=== PATIENT | female | born 1985 | race Caucasian/White ===

== ENCOUNTER 2017-11-07 15:34 | Emergency (ER) | payer OTHER ==
[2017-11-07] MEDS ORDERED: DIPH,PERTUS(ACELL)TETVAC-LF 0.5 ML VIAL IM ONE (16:19)
--- NOTE | 2017-11-07 16:33 | XR ---
EXAMINATION TYPE: XR finger LT DATE OF EXAM: 11/07/2017 COMPARISON: NONE HISTORY: Left fifth finger pain after laceration injury. TECHNIQUE: 3 views of left fifth finger are acquired. FINDINGS: No acute fracture or dislocation is seen. Joint spaces are preserved. Overlying soft tissue is unremarkable without radiodense foreign body present. IMPRESSION: No acute fracture or dislocation in the fifth finger of left hand.
--- NOTE | 2017-11-07 17:22 | ED ---
Fall HPI - General Chief Complaint: Fall Stated Complaint: finger lac Time Seen by Provider: 11/07/17 16:06 Source: patient, RN notes reviewed, old records reviewed Mode of arrival: ambulatory - History of Present Illness Initial Comments: It is a 32-year-old female chief complaint of left fifth finger laceration of last night. She reports that she fell while caring boxes and slipped. Reports that the think she was caring fell and she landed on her left hand. Just complains of some minor left elbow pain, reports full range of motion. She states her tetanus shot is not up-to-date.Patient is concerned because she put a Band-Aid over the laceration last night. She continued to bleed throughout the day. - Related Data Home Medications Medication Instructions Recorded Confirmed Etonogestrel/Ethinyl Estradiol 1 each VG DAILY 04/11/14 04/11/14 [Nuvaring Vaginal Ring] Previous Rx's Medication Instructions Recorded Cephalexin [Keflex] 500 mg PO Q8HR #21 cap 11/07/17 Allergies Allergy/AdvReac Type Severity Reaction Status Date / Time codeine AdvReac Nausea & Verified 11/07/17 15:41 Vomiting Review of Systems ROS Statement: Those systems with pertinent positive or pertinent negative responses have been documented in the HPI. ROS Other: All systems not noted in ROS Statement are negative. Past Medical History Past Medical History: No Reported History History of Any Multi-Drug Resistant Organisms: None Reported Past Surgical History: Orthopedic Surgery, Tonsillectomy Additional Past Surgical History / Comment(s): right hip surgery, GASTRIC BYPASS Past Psychological History: No Psychological Hx Reported Smoking Status: Current some day smoker Past Alcohol Use History: Occasional Past Drug Use History: None Reported General Exam - General Exam Comments Initial Comments: 32-year-old female. No acute distress. Limitations: no limitations General appearance: alert, in no apparent distress Head exam: Present: atraumatic, normocephalic, normal inspection Eye exam: Present: normal appearance, PERRL, EOMI. Absent: scleral icterus, conjunctival injection, periorbital swelling ENT exam: Present: normal exam, mucous membranes moist Neck exam: Present: normal inspection. Absent: tenderness, meningismus, lymphadenopathy Respiratory exam: Present: normal lung sounds bilaterally. Absent: respiratory distress, wheezes, rales, rhonchi, stridor Cardiovascular Exam: Present: regular rate, normal rhythm, normal heart sounds. Absent: systolic murmur, diastolic murmur, rubs, gallop, clicks Left Hand Wrist exam: Present: laceration (flap laceration measuirng 3 cm over left lateral 5th digit). Absent: normal inspection Neuro motor exam: Present: wrist extension intact, thumb opposition intact, thumb IP flexion intact, thumb adduction intact, fingers 2-5 abduction intact Neurosensory exam: Present: radial nerve intact, ulnar nerve intact, median nerve intact Vascular: Present: normal capillary refill Back exam: Present: normal inspection Neurological exam: Present: alert, oriented X3, CN II-XII intact Psychiatric exam: Present: normal affect, normal mood Skin exam: Present: warm, dry, intact, normal color. Absent: rash Course Vital Signs 11/07/17 11/07/17 15:37 17:28 Temperature 98.8 F 97.8 F Pulse Rate 105 H 78 Respiratory 18 16 Rate Blood Pressure 190/101 150/70 O2 Sat by Pulse 100 98 Oximetry Procedures - Laceration Laceration #1 Site: upper extremity, hand (left fifth finger) Size (cm): 3 Description: flap Anesthetic Used: lidocaine 1% Anesthesia Technique: nerve block Amount (mls): 3 Pre-repair: wound explored, irrigated extensively Type of Sutures: nylon Size of Sutures: 6-0 Number of Sutures: 6 Technique: simple, interrupted Patient Tolerated Procedure: well, no complications Medical Decision Making - Medical Decision Making This patient is a 32-year-old female with a laceration over her left fifth digits that occurred yesterday when she fell. She's concerned because it's deeper than she realize and continue to bleed throughout the night. Patient has a 3 cm laceration over the finger. It is a flap laceration. Actually was obtained a negative for any acute process. Patient's wound was irrigated and clean with Betadine. Wound was wel approximated was close with suture. Discussed bring the patient on anabiotic's due to delay closure and concern for possible infection. Given an updated tetanus shot. All questions were answered in return for me just were discussed. Patient was discharged with her finger wrapped in tube gauze. - Radiology Data Radiology results: report reviewed finger xray is nefative for any acute process Disposition Clinical Impression: Finger laceration Disposition: HOME SELF-CARE Condition: Good Instructions: Finger Laceration (ED) Additional Instructions: Please return to the emergency room in 8-10 days to have sutures removed. Please leave wound covered for the first 24-48 hours and then leave open to air after that time. Please use clean soap and water to clean the suture area to prevent scabbing over the top of your sutures. Please watch for any signs of infection which may include but not limited to increased pain, swelling, redness , fever or chills. Please return to the emergency room if any signs of infection do occur. Please return to the emergency room for any other concerns or complications. Prescriptions: Cephalexin [Keflex] 500 mg PO Q8HR #21 cap Referrals: None,Stated [Primary Care Provider] - 1-2 days Time of Disposition: 17:21
[2017-11-07 17:29] VITALS: BP 150/70; PULSE 78; RESP 16; TEMP 97.8
== END 2017-11-07 17:28 | disposition home or self-care (01) ==
LOC: EC 15:34
DX: S61.217A Laceration without foreign body of left little finger without damage to nail, initial encounter (principal); M25.511 Pain in right shoulder; F17.200 Nicotine dependence, unspecified, uncomplicated; Z23 Encounter for immunization; Z79.3 Long term (current) use of hormonal contraceptives; Z88.5 Allergy status to narcotic agent; W01.0XXA Fall on same level from slipping, tripping and stumbling without subsequent striking against object, initial encounter
CPT/HCPCS: 12002; 90471; 90715; 99283

== ENCOUNTER 2018-04-13 03:35 | Emergency (ER) | payer OTHER ==
[2018-04-13 03:45] VITALS: TEMP 98.3
[2018-04-13] MEDS ORDERED: SODIUM CHLORIDE 0.9% 1,000 ML IV ONE (03:56)
[2018-04-13] MEDS ORDERED: chlordiazePOXIDE 25 MG CAP PO STA (04:10)
--- NOTE | 2018-04-13 04:14 | ED ---
General Adult HPI - General Chief complaint: Recheck/Abnormal Lab/Rx Stated complaint: poss dehydration Time Seen by Provider: 04/13/18 03:56 Source: patient Mode of arrival: ambulatory Limitations: no limitations - History of Present Illness Initial comments: This patient is a 33-year-old woman who presents to be evaluated for feeling like she is anxious and dehydrated. The patient states she had gone to a barbecue today and it was very hot there, in addition the puncture site was served had tequila in it and she states that always gives her a "reaction." The patient states that she attended the [employer] from 5 PM onward and started feeling different around 10 PM. She complains of bilateral leg cramping. Also feeling anxious and like her heart is racing. -: hour(s) Location: left, right, lower extremity Quality: other (Cramping) Consistency: intermittent Improves with: none Worsens with: none Associated Symptoms: other (Anxiety) Treatments Prior to Arrival: none - Related Data Home Medications Medication Instructions Recorded Confirmed Etonogestrel/Ethinyl Estradiol 1 each VG DAILY 04/11/14 04/11/14 [Nuvaring Vaginal Ring] Previous Rx's Medication Instructions Recorded Cephalexin [Keflex] 500 mg PO Q8HR #21 cap 11/07/17 Allergies Allergy/AdvReac Type Severity Reaction Status Date / Time codeine AdvReac Nausea & Verified 04/13/18 03:45 Vomiting Review of Systems ROS Statement: Those systems with pertinent positive or pertinent negative responses have been documented in the HPI. ROS Other: All systems not noted in ROS Statement are negative. Constitutional: Denies: fever, chills, weakness Respiratory: Denies: cough, dyspnea Cardiovascular: Reports: palpitations. Denies: chest pain, orthopnea, edema, syncope Gastrointestinal: Denies: abdominal pain, nausea, vomiting Genitourinary: Denies: dysuria, hematuria Musculoskeletal: Reports: as per HPI, myalgia. Denies: back pain Skin: Denies: rash Neurological: Denies: headache, weakness, numbness Psychiatric: Reports: anxiety Past Medical History Past Medical History: No Reported History History of Any Multi-Drug Resistant Organisms: None Reported Past Surgical History: Orthopedic Surgery, Tonsillectomy Additional Past Surgical History / Comment(s): right hip surgery, GASTRIC BYPASS Past Psychological History: No Psychological Hx Reported Smoking Status: Current some day smoker Past Alcohol Use History: Occasional Past Drug Use History: None Reported General Exam Limitations: no limitations General appearance: alert, in no apparent distress, obese Head exam: Present: atraumatic, normocephalic Eye exam: Present: normal appearance. Absent: scleral icterus, conjunctival injection ENT exam: Present: normal oropharynx Respiratory exam: Present: normal lung sounds bilaterally. Absent: respiratory distress, wheezes, rales, rhonchi, stridor Cardiovascular Exam: Present: normal rhythm, tachycardia, normal heart sounds. Absent: systolic murmur, diastolic murmur, rubs, gallop GI/Abdominal exam: Present: soft. Absent: distended, tenderness, guarding, rebound, mass Extremities exam: Present: normal inspection, normal capillary refill. Absent: pedal edema, calf tenderness Back exam: Present: normal inspection. Absent: CVA tenderness (R), CVA tenderness (L) Neurological exam: Present: alert Psychiatric exam: Present: anxious Skin exam: Present: warm, dry, intact, normal color. Absent: rash Course Vital Signs 04/13/18 04/13/18 04/13/18 03:42 05:47 06:00 Temperature 98.3 F Pulse Rate 133 H 103 H 97 Respiratory 20 18 18 Rate Blood Pressure 201/101 209/87 161/81 O2 Sat by Pulse 100 98 99 Oximetry 04/13/18 07:15 Temperature Pulse Rate 91 Respiratory 18 Rate Blood Pressure 200/103 O2 Sat by Pulse 98 Oximetry EKG Findings - EKG Results: EKG: interpreted by ERMD, sinus rhythm, normal axis, normal QRS, normal ST/T EKG shows: tachycardia (Rate approximately 116 bpm) Medical Decision Making - Lab Data Result diagrams: 04/13/18 04:16 04/13/18 04:16 Lab Results 04/13/18 04/13/18 04/13/18 Range/Units 04:16 04:16 04:16 WBC 16.3 H (3.8-10.6) k/uL RBC 4.79 (3.80-5.40) m/uL Hgb 11.9 (11.4-16.0) gm/dL Hct 37.0 (34.0-46.0) % MCV 77.2 L (80.0-100.0) fL MCH 24.8 L (25.0-35.0) pg MCHC 32.1 (31.0-37.0) g/dL RDW 17.1 H (11.5-15.5) % Plt Count 444 (150-450) k/uL Neutrophils % 82 % Lymphocytes % 12 % Monocytes % 3 % Eosinophils % 2 % Basophils % 0 % Neutrophils # 13.3 H (1.3-7.7) k/uL Lymphocytes # 2.0 (1.0-4.8) k/uL Monocytes # 0.5 (0-1.0) k/uL Eosinophils # 0.3 (0-0.7) k/uL Basophils # 0.0 (0-0.2) k/uL Anisocytosis Slight Microcytosis Slight D-Dimer (<0.60) mg/L FEU Sodium 131 L (137-145) mmol/L Potassium 4.3 (3.5-5.1) mmol/L Chloride 98 (98-107) mmol/L Carbon Dioxide 15 L (22-30) mmol/L Anion Gap 18 mmol/L BUN 4 L (7-17) mg/dL Creatinine 0.50 L (0.52-1.04) mg/dL Est GFR (CKD-EPI)AfAm >90 (>60 ml/min/1.73 sqM) Est GFR (CKD-EPI)NonAf >90 (>60 ml/min/1.73 sqM) Glucose 100 H (74-99) mg/dL Lactic Ac Sepsis Rflx Plasma Lactic Acid Fercho 2.7 H* (0.7-2.0) mmol/L Calcium 9.2 (8.4-10.2) mg/dL Urine Color Urine Appearance (Clear) Urine pH (5.0-8.0) Ur Specific Clayton (1.001-1.035) Urine Protein (Negative) Urine Glucose (UA) (Negative) Urine Ketones (Negative) Urine Blood (Negative) Urine Nitrite (Negative) Urine Bilirubin (Negative) Urine Urobilinogen (<2.0) mg/dL Ur Leukocyte Esterase (Negative) Serum Alcohol mg/dL 04/13/18 04/13/18 04/13/18 Range/Units 04:16 04:16 04:16 WBC (3.8-10.6) k/uL RBC (3.80-5.40) m/uL Hgb (11.4-16.0) gm/dL Hct (34.0-46.0) % MCV (80.0-100.0) fL MCH (25.0-35.0) pg MCHC (31.0-37.0) g/dL RDW (11.5-15.5) % Plt Count (150-450) k/uL Neutrophils % % Lymphocytes % % Monocytes % % Eosinophils % % Basophils % % Neutrophils # (1.3-7.7) k/uL Lymphocytes # (1.0-4.8) k/uL Monocytes # (0-1.0) k/uL Eosinophils # (0-0.7) k/uL Basophils # (0-0.2) k/uL Anisocytosis Microcytosis D-Dimer 0.75 H (<0.60) mg/L FEU Sodium (137-145) mmol/L Potassium (3.5-5.1) mmol/L Chloride (98-107) mmol/L Carbon Dioxide (22-30) mmol/L Anion Gap mmol/L BUN (7-17) mg/dL Creatinine (0.52-1.04) mg/dL Est GFR (CKD-EPI)AfAm (>60 ml/min/1.73 sqM) Est GFR (CKD-EPI)NonAf (>60 ml/min/1.73 sqM) Glucose (74-99) mg/dL Lactic Ac Sepsis Rflx Plasma Lactic Acid Fercho (0.7-2.0) mmol/L Calcium (8.4-10.2) mg/dL Urine Color Colorless Urine Appearance Clear (Clear) Urine pH 5.5 (5.0-8.0) Ur Specific [place] 1.001 (1.001-1.035) Urine Protein Negative (Negative) Urine Glucose (UA) Negative (Negative) Urine Ketones Trace H (Negative) Urine Blood Negative (Negative) Urine Nitrite Negative (Negative) Urine Bilirubin Negative (Negative) Urine Urobilinogen <2.0 (<2.0) mg/dL Ur Leukocyte Esterase Negative (Negative) Serum Alcohol 64 mg/dL 04/13/18 Range/Units 04:41 WBC (3.8-10.6) k/uL RBC (3.80-5.40) m/uL Hgb (11.4-16.0) gm/dL Hct (34.0-46.0) % MCV (80.0-100.0) fL MCH (25.0-35.0) pg MCHC (31.0-37.0) g/dL RDW (11.5-15.5) % Plt Count (150-450) k/uL Neutrophils % % Lymphocytes % % Monocytes % % Eosinophils % % Basophils % % Neutrophils # (1.3-7.7) k/uL Lymphocytes # (1.0-4.8) k/uL Monocytes # (0-1.0) k/uL Eosinophils # (0-0.7) k/uL Basophils # (0-0.2) k/uL Anisocytosis Microcytosis D-Dimer (<0.60) mg/L FEU Sodium (137-145) mmol/L Potassium (3.5-5.1) mmol/L Chloride (98-107) mmol/L Carbon Dioxide (22-30) mmol/L Anion Gap mmol/L BUN (7-17) mg/dL Creatinine (0.52-1.04) mg/dL Est GFR (CKD-EPI)AfAm (>60 ml/min/1.73 sqM) Est GFR (CKD-EPI)NonAf (>60 ml/min/1.73 sqM) Glucose (74-99) mg/dL Lactic Ac Sepsis Rflx Y Plasma Lactic Acid Fercho (0.7-2.0) mmol/L Calcium (8.4-10.2) mg/dL Urine Color Urine Appearance (Clear) Urine pH (5.0-8.0) Ur Specific [place] (1.001-1.035) Urine Protein (Negative) Urine Glucose (UA) (Negative) Urine Ketones (Negative) Urine Blood (Negative) Urine Nitrite (Negative) Urine Bilirubin (Negative) Urine Urobilinogen (<2.0) mg/dL Ur Leukocyte Esterase (Negative) Serum Alcohol mg/dL Disposition Clinical Impression: Dehydration, Anxiety Disposition: HOME SELF-CARE Condition: Good Instructions: Dehydration (ED) Is patient prescribed a controlled substance at d/c from ED?: No Referrals: None,Stated [Primary Care Provider] - 1-2 days
[2018-04-13 04:21] LABS: Appearance,Urine Clear (Clear); Bilirubin,Urine Negative (Negative); Blood,Urine Negative (Negative); Color,Urine Colorless; Glucose,Urine (UA) Negative (Negative); Ketones,Urine Trace (Negative); Leukocyte Esterase,Urine Negative (Negative); Nitrite,Urine Negative (Negative); PH, Urine 5.5 (5.0-8.0); Protein,Urine Negative (Negative); Specific Gravity,Urine 1.001 (1.001-1.035); Urobilinogen,Urine <2.0 mg/dL (<2.0)
[2018-04-13 04:27] LABS: Anisocytosis Slight; Basophils % (A) 0 %; Eosinophils # (A) 0.3 k/uL (0-0.7); Eosinophils % (A) 2 %; HGB 11.9 gm/dL (11.4-16.0); Lymphocytes % (A) 12 %; MCH 24.8 pg (25.0-35.0); MCHC 32.1 g/dL (31.0-37.0); MCV 77.2 fL (80.0-100.0); Mean Platelet Volume 7.1; Microcytosis Slight; Monocytes # (A) 0.5 k/uL (0-1.0); Monocytes % (A) 3 %; Neutrophils # (A) 13.3 k/uL (1.3-7.7); Neutrophils % (A) 82 %; Platelet Count 444 k/uL (150-450); RBC 4.79 m/uL (3.80-5.40); RDW 17.1 % (11.5-15.5); WBC 16.3 k/uL (3.8-10.6)
[2018-04-13 04:33] LABS: Anion Gap 18 mmol/L; Calcium 9.2 mg/dL (8.4-10.2); Carbon Dioxide 15 mmol/L (22-30); Chloride 98 mmol/L (98-107); Glucose 100 mg/dL (74-99); Sodium 131 mmol/L (137-145)
[2018-04-13 04:39] LABS: Blood Urea Nitrogen 4 mg/dL (7-17); Potassium 4.3 mmol/L (3.5-5.1)
[2018-04-13] MEDS ORDERED: SODIUM CHLORIDE 0.9% 2,000 ML IV ONE (04:45)
[2018-04-13] MEDS ORDERED: LABETALOL 5 MG/ML VIAL MDV IVP STA (05:50)
--- NOTE | 2018-04-13 07:14 | CT ---
EXAMINATION TYPE: CT chest angio for PE DATE OF EXAM: 04/13/2018 COMPARISON: NONE HISTORY: Patient complains of chest pain. CT DLP: 489 mGycm Automated exposure control for dose reduction was used. CONTRAST: CT Chest for pulmonary embolism performed with with IV Contrast, patient injected with 100 mL of Isov ue 370. FINDINGS: There are 3-D post processed images. The lungs are clear of infiltrate. There is no evidence of a pulmonary mass. There is no pleural effu norberto. The heart size is normal. There is no pericardial effusion. There is normal contrast opacification of the pulmonary arteries. There are no filling defects. There is no mediastinal adenopathy. There are no hilar masses. Thoracic aorta appears normal. There is minor spurring in the thoracic spine. I see no bony destructive process. Heart appears slightly enlarged. IMPRESSION: Mild cardiomegaly. No evidence of pulmonary embolism.
[2018-04-13] MEDS ORDERED: LORazepam 2 MG/ML INJ IV STA (07:21)
[2018-04-13 08:28] VITALS: BP 152/74; PULSE 88; RESP 16
== END 2018-04-13 08:05 | disposition home or self-care (01) ==
LOC: EC 03:35
DX: E86.0 Dehydration (principal); F41.9 Anxiety disorder, unspecified; R25.2 Cramp and spasm; R00.0 Tachycardia, unspecified; F17.200 Nicotine dependence, unspecified, uncomplicated; Z97.5 Presence of (intrauterine) contraceptive device; Z88.5 Allergy status to narcotic agent
CPT/HCPCS: 36415; 93005; 85379; 80048; 83605; 85025; 81003; 80320; 71275; 99284; 96374; 96375; 96360; 96361 ×4; J2060; Q9967